=== PATIENT | male | born 1975 | race Caucasian/White ===

== ENCOUNTER 2021-09-29 17:11 | Emergency (ER) | payer SELFPAY ==
[2021-09-29 17:22] VITALS: BP 179/73; PULSE 83; RESP 20; TEMP 36.6; O2SAT 97
--- NOTE | 2021-09-29 17:31 | ED_ITS ---
HPI - Extremity Problem General: Chief complaint: Extremity Injury, Upper Stated complaint: HAND INJURY 4 TO 5 DAYS AGO Time Seen by Provider: 09/29/21 17:30 History of Present Illness: 46-year-old male patient comes in [facility] for complaints of injury to the left hand. Patient had fallen and struck his hand against the ground approximately 2 or 3 days ago. Patient was incarcerated and had just got out of [facility] and was recommended to follow-up for evaluation. Associated symptoms: Deny chest pain or rash Review of Systems General: Reports: 10 or more systems reviewed and unremarkable except in HPI and below ENMT: Denies: throat pain Card: Denies: chest pain Resp: Denies: dyspnea Musc: Reports: extremity pain Skin/Breast: Denies: rash or new lesions Physical Exam Const: COMMON NORMALS: alert HENMT: COMMON NORMALS: normocephalic HEAD & SCALP: normocephalic Neck/C-Spine: COMMON NORMALS: full ROM Resp: COMMON NORMALS: normal respiratory effort Cardio: COMMON NORMALS: regular rate RATE: regular rate Extremity: LEFT UPPER EXTREMITY: Yes hand & digits (Swelling and tenderness is noted to the left hand. No significant deformit) Left hand and digits: Yes inspection, Yes palpation and Yes ROM Neuro: SENSORIUM/ORIENTATION: Yes alert Course Vital Signs: Vital signs: Vital Signs Temperature 97.8 F 09/29/21 17:22 Pulse Rate 83 09/29/21 17:22 Respiratory Rate 20 H 09/29/21 17:22 Blood Pressure 179/73 09/29/21 17:22 Pulse Oximetry 97 09/29/21 17:22 MDM - Extremity (Nontraumatic) Medical Decision Making 46-year-old male patient comes in for injury to the left hand. On exam patient has some swelling and tenderness to the dorsal hand. Distal cap refill is intact. Patient moves fingers with minimal difficulty. Differential diagnosis includes not limited to boxer's fracture, wrist fracture, contusion. X-ray notes a shaft fifth metacarpal fracture and possibly a ulnar styloid fracture. Patient was put in a ulnar gutter splint. Patient was recommended to follow-up with orthopedics. Barrier to care is patient's homelessness. Although the fracture does not seem very displaced today suspect he will probably heal without any difficulty but strongly encouraged him to follow-up. Patient stated understanding and agreed to plan. Patient is a barrier to care as alcohol abuse. Patient was written for 10 tablets of tramadol for pain. Discharge Plan Discharge Patient Disposition: Home Clinical Impression: Alcohol abuse Closed boxer's fracture Qualifiers: Encounter type: initial encounter Qualified Code(s): S62.339A - Displaced fracture of neck of unspecified metacarpal bone, initial encounter for closed fracture Closed fracture of metacarpal of left hand Qualifiers: Encounter type: initial encounter Metacarpal bone: fifth Metacarpal location: shaft Fracture alignment: nondisplaced Qualified Code(s): S62.357A - Nondisplaced fracture of shaft of fifth metacarpal bone, left hand, initial encounter for closed fracture Condition: Stable Prescriptions: New tramadol 50 mg tablet 50 mg PO Q6H PRN (Reason: pain) Qty: 10 0RF Discharge Orders: Discharge ED (Routine); Ordered 09/29/21 Ordered By: Sam Simmons Discharge Diet: Usual diet Discharge Activity: Increase activity as tolerated Patient Instructions: Boxer Fracture (ED) Activity Restrictions/Additional Instructions: Follow-up with primary care for further instruction. Case management will try to contact you regarding a orthopedic follow-up. You may contact your orthopedist of your choice. Use acetaminophen and ibuprofen to help control pain. Drink plenty of water with medications. Keep splint intact and dry. Coding Level of Care Code ED Valve Steamer for Flavio Larkin
--- NOTE | 2021-09-29 18:21 | XRR_ITS ---
PROCEDURE INFORMATION: Exam: XR Left Hand Exam date and time: 09/29/2021 6:37 PM Age: 46 years old Clinical indication: Pain; Hand; Left; Additional info: Injury TECHNIQUE: Imaging protocol: XR Left hand. Views: 3 or more views. COMPARISON: No relevant prior studies available. FINDINGS: Bones/joints: Transverse fracture through the distal 5th metacarpal. Displaced avulsion fracture of the ulnar styloid process. Soft tissues: Normal. XR/XR hand LT min 3V* [id number] IMPRESSION: 1. Transverse fracture through the distal 5th metacarpal. 2. Displaced avulsion fracture of the ulnar styloid process.
--- NOTE | 2021-09-29 18:21 | XRR_ITS ---
PROCEDURE INFORMATION: Exam: XR Left Forearm Exam date and time: 09/29/2021 6:37 PM Age: 46 years old Clinical indication: Pain; Lower or forearm; Left; Additional info: Injury TECHNIQUE: Imaging protocol: XR Left forearm. Views: 2 views. COMPARISON: No relevant prior studies available. FINDINGS: Bones/joints: Fracture through the distal 5th metacarpal and ulnar styloid avulsion fracture. The rest of the radius and ulna are intact. Soft tissues: Normal. XR/XR forearm LT 2V [id number] IMPRESSION: 1. Fracture through the distal 5th metacarpal. 2. Ulnar styloid avulsion fracture.
[2021-09-29] MEDS: TRAMadol 50 mg Tablet PO (18:33)
[2021-09-29] MEDS: LORazepam 0.5 mg Tablet PO ×2 (18:33→19:21)
[2021-09-29 19:25] VITALS: BP 160/89; PULSE 59; RESP 20; O2SAT 98
--- NOTE | 2021-09-30 09:37 | DCPLANNER ---
Addendum entered by Alecia Rogel 10/10/21 16:53: Patient had a follow up appointment scheduled for 10.06.21 with ortho - patient did not attend appointment. Addendum entered by Alecia Rogel 10/02/21 10:48: Patient has a follow up appointment scheduled for October at 2:00 with Zoltan Sidhu. Clinic will call patient with appointment information. Original Note: manager of patient had message to schedule a follow up appointment for patient with ortho. manager of patient sent patients information to the front office staff at ortho. Patients information will be printed and reviewed. Clinic will call patient with appointment information.
== END 2021-09-29 19:25 | disposition home or self-care (01) ==
PROVIDERS: Emergency Provider Nurse Practitioner Family
DX: S62.339A Displaced fracture of neck of unspecified metacarpal bone, initial encounter for closed fracture (principal); S62.357A Nondisplaced fracture of shaft of fifth metacarpal bone, left hand, initial encounter for closed fracture; W19.XXXA Unspecified fall, initial encounter
CPT/HCPCS: 29125; 73090; 73130; 99283

== ENCOUNTER 2021-10-01 21:18 | Observation (INO) | payer SELFPAY ==
[2021-10-01 21:39] VITALS: BMI 23.7
--- NOTE | 2021-10-01 21:47 | ED_ITS ---
Documented by User: ERROL Johnson 10/02/21 02:26 HPI - Nausea/Vomiting/Diarrhea General: Chief complaint: Nausea/Vomiting/Diarrhea Stated complaint: N/V Time Seen by Provider: 10/01/21 21:39 History of Present Illness: Patient is a 46-year-old male comes to the ED with nausea and vomiting. Symptoms started today when he woke up. He said his stomach is felt really nauseous and when he tries to eat or drink anything he throws it back up. Denies any known sick contacts. He has had multiple episodes of emesis today. Patient admits to being a heavy daily alcohol drinker and states that he has not been able to even keep alcohol down today and has been throwing that up as well. Patient usually consumes close to 1 to 2 pints of liquor a day. He denies any fevers, chills, upper respiratory symptoms, abdominal pain, bladder or bowel symptoms. Denies any recent falls or syncopal episodes. Associated nausea: Yes Associated symtoms: Reports nausea; Denies change in vision, chest pain, dysuria, fatigue, headache(s) or palpitations Review of Systems Const: Denies: fever(s), chills or fatigue Eyes: Denies: change in vision or eye discomfort ENMT: Denies: throat pain, odynophagia, nasal discharge or nasal congestion Card: Denies: chest pain, palpitations, edema, swelling of feet/ankles, dyspnea on exertion or orthopnea Resp: Denies: dyspnea, productive cough or non-productive cough GI: Reports: nausea and vomiting; Denies: abdominal pain, diarrhea, constipation or hematochezia : Denies: flank pain, difficulty urinating, dysuria or hematuria Musc: Denies: neck pain, back pain or extremity swelling Skin/Breast: Denies: rash or new lesions Neuro: Denies: headache(s), numbness in extremities or weakness in extremities PFS ED PFSH: Medical History Alcohol abuse No pertinent family history Physical Exam Const: COMMON NORMALS: patient oriented x3 and alert GENERAL APPEARANCE: cooperative and odor of alcohol detected HENMT: COMMON NORMALS: normocephalic HEAD & SCALP: normocephalic MOUTH: Normal oral and palatal mucosa present THROAT: posterior oropharynx normal and uvula midline Eye: COMMON NORMALS: Equal, round and reactive pupils present PUPIL: Yes Equal, round and reactive pupils present Neck/C-Spine: COMMON NORMALS: supple GENERAL: Yes normal visual inspection Resp: COMMON NORMALS: normal respiratory effort, No retractions, No use of accessory muscles and clear to auscultation bilaterally AUSCULTATION: clear to auscultation bilaterally Cardio: COMMON NORMALS: regular rate, regular rhythm, S1 normal heart sound present, S2 normal heart sound present, No gallops present (Cardio), No clicks present (Cardio), No murmurs present (Cardio) and Peripheral pulses 2+ throughout RATE: regular rate RHYTHM: regular rhythm HEART SOUNDS: S1 normal heart sound present and S2 normal heart sound present PERIPHERAL PULSES: Peripheral pulses 2+ throughout GI: COMMON NORMALS: Normal to inspection, nondistended, normoactive bowel sounds present, Soft to palpation, non-tender and no masses PALPATION: Yes Soft to palpation : COMMON NORMALS: Yes no CVA tenderness BLADDER/KIDNEY EXAM: Yes no CVA tenderness Back/Pelvis: COMMON NORMALS: no CVA tenderness Extremity: COMMON NORMALS: normal to inspection Neuro: COMMON NORMALS: patient oriented x3 and moves all extremities SENSORIUM/ORIENTATION: Yes alert Skin: GENERAL SKIN EXAM: dry skin Course Vital Signs: Vital signs: Vital Signs Pulse Rate 80 10/02/21 05:00 Respiratory Rate 22 H 10/02/21 05:00 Blood Pressure 151/71 10/02/21 05:00 Pulse Oximetry 93 10/02/21 05:00 MDM - Nausea/Vomiting/Diarrhea Medical Decision Making Patient case was signed over to Dr. Sánchez at the end of my shift. I reviewed patient case with Dr. Sánchez and he will be taking over care for patient and discharge plan. Patient is a 46-year-old male that came to the ED with nausea and vomiting that started today. He denies any abdominal pain, fevers, chills, chest pain, shortness of breath, bladder or bowel symptoms. He admits to being a daily alcohol user and drinks close to a pint of liquor a day. Vitals are stable. Patient does have an odor of alcohol during exam. He has no abdominal tenderness upon palpation throughout all 4 quadrants. Rest of exam is benign. Alcohol level 214 and the rest of labs were unremarkable. Patient was given 1 L of IV fluids and some Reglan and thiamine while here in the ED and his symptoms improved. He was not having any nausea. Patient can be discharged home pending p.o. fluid challenge. Lab Data I reviewed the patient's lab results. : 10/01/21 22:43 10/01/21 22:43 Radiology Impressions Chest X-Ray 10/02/21 02:38 IMPRESSION: No acute findings. Laboratory Results WBC 5.2 10^3/uL (4.0-10.0) 10/01/21 22: RBC 4.33 10^6/uL (4.1-5.3) 10/01/21 22:43 Hgb 14.1 g/dL (11.7-16.6) 10/01/21 22: Hct 41.0 % (42.0-52.0) L 10/01/21 22: MCV 94.7 fl (80-94) H 10/01/21 22: MCH 32.6 pg (28.0-34.0) 10/01/21 22: MCHC 34.4 g/dL (30.0-36.0) 10/01/21 22: RDW 12.5 % (12.1-15.1) 10/01/21: Plt Count 133 10^3/cmm (130-400) 10/01/21 22: MPV 9.9 fL (7.4-10.4) 10/01/21 22:43 Neut % (Auto) 63.3 % 10/01/21 22: Lymph % (Auto) 25.0 % 10/01/21 22:43 [place] % (Auto) 9.3 % 10/01/21 22:43 Eos % (Auto) 1.0 % 10/01/21 22:43 Baso % (Auto) 1.2 % 10/01/21:43 Neut # (Auto) 3.26 10^3/uL (1.8-7.7) 10/01/21 22:43 Lymph # (Auto) 1.3 10^3/uL (0.8-4.8) 10/01/21 22:43 [place] # (Auto) 0.5 10^3/uL (0.2-0.9) 10/01/21 22:43 Eos # (Auto) 0.1 10^3/uL (0.0-0.8) 10/01/21 22:43 Baso # (Auto) 0.1 10^3/uL (0.0-0.1) 10/01/21 22:43 Nucleated RBC % (auto) 0 % 10/01/21 22:43 Nucleated RBCs # 0.0 /100WBC 10/01/21 22:43 Sodium 139 mmol/L (136-145) 10/01/21 22:43 Potassium 3.6 mmol/L (3.5-5.1) 10/01/21 22:43 Chloride 99 mmol/L (98-107) 10/01/21 22:43 Carbon Dioxide 24 mmol/L (22-29) 10/01/21 22:43 Anion Gap 19.6 (5-19) H 10/01/21 22:43 BUN 11 mg/dL (6-20) 10/01/21 22:43 Creatinine 0.5 mg/dL (0.7-1.2) L 10/01/21 22:43 GFR Calculation 178.2 mL/min (90-130) H 10/01/21 22:43 Glucose 97 mg/dL (65-115) 10/01/21 22:43 Calculated Osmolality 287 mOsm/kg (285-295) 10/01/21 22:43 Calcium 7.9 mg/dL (8.5-10.5) L 10/01/21 22:43 Total Bilirubin 0.5 mg/dL (0.15-1.2) 10/01/21 22:43 AST 74 U/L (0-40) H 10/01/21 22:43 ALT 52 U/L (0-41) H 10/01/21 22:43 Alkaline Phosphatase 134 IU/L (40-130) H 10/01/21 22:43 Total Protein 6.6 g/dL (6.6-8.7) 10/01/21 22:43 Albumin 4.0 g/dL (3.5-5.2) 10/01/21 22:43 Globulin 2.6 g/dL (1.3-4.6) 10/01/21 22:43 Lipase 25 U/L (13-60) 10/01/21 22:43 Urine Color Dark yellow (Yellow) 10/01/21 22:00 Urine Appearance Turbid (CLEAR) 10/01/21 22:00 Urine pH 5 (5-7) 10/01/21 22:00 Ur Specific [place] 1.025 (1.005-1.030) 10/01/21 22:00 Urine Protein Trace (Negative) 10/01/21 22:00 Urine Glucose (UA) Norm (Normal) 10/01/21 22:00 Urine Ketones 2+ (Negative) H 10/01/21 22:00 Urine Blood 2+ (Negative) H 10/01/21 22:00 Urine Nitrate Negative (Negative) 10/01/21 22:00 Urine Bilirubin 1+ (Negative) H 10/01/21 22:00 Urine Urobilinogen 4 mg/dL (Negative) H 10/01/21 22:00 Ur Leukocyte Esterase Trace (Negative) H 10/01/21 22:00 Urine RBC 10-15 /hpf (0-2) H 10/01/21 22:00 Urine WBC 15-25 /hpf (0-5) H 10/01/21 22:00 Ur Squamous Epith Cells 5-10 /hpf (0-5) H 10/01/21 22:00 Amorphous Sediment Not Reportable 10/01/21 22:00 Urine Bacteria 1+ /hpf (NONE) H 10/01/21 22:00 Hyaline Casts 0-4 /lpf H 10/01/21 22:00 Urine Mucus 4+ /hpf 10/01/21 22:00 Ethyl Alcohol 214 mg/dL (0-10) H 10/01/21 22:43 Discharge Plan Discharge Patient Disposition: Home Clinical Impression: Vomiting, Gastritis, Alcohol intoxication Condition: Stable Prescriptions: New ondansetron 4 mg film 4 mg PO DAILY PRN (Reason: nausea and vomiting) Qty: 10 0RF lansoprazole [Prevacid] 30 mg capsule,delayed release(DR/EC) 30 mg PO DAILY Qty: 30 0RF No Action tramadol 50 mg tablet 50 mg PO Q6H PRN (Reason: pain) Qty: 10 0RF Discharge Orders: Discharge ED (Routine); Ordered 10/02/21 Ordered By: Noble Sánchez Patient Instructions: Gastritis (ED), Alcohol Intoxication (ED), Vomiting - Adult Activity Restrictions/Additional Instructions: Return for shortness of breath, worsening vomiting despite treatment, abdominal or chest pain, any other concerning symptoms. Take the nausea medication every 4 hours while awake for the first 48 hours, then as needed. Coding Level of Care Code ED Obiee Architect for Chg Fwd Exam Comprehensive Documented by User: Noble Sánchez, DO 10/02/21 05:54 HPI - Nausea/Vomiting/Diarrhea General: Chief complaint: Nausea/Vomiting/Diarrhea Stated complaint: N/V Time Seen by Provider: 10/01/21 21:39 History of Present Illness: Patient is a 46-year-old male comes to the ED with nausea and vomiting. Symptoms started today when he woke up. He said his stomach is felt really nauseous and when he tries to eat or drink anything he throws it back up. Denies any known sick contacts. He has had multiple episodes of emesis today. Patient admits to being a heavy daily alcohol drinker and states that he has not been able to even keep alcohol down today and has been throwing that up as well. Patient usually consumes close to 1 to 2 pints of liquor a day. He denies any fevers, chills, upper respiratory symptoms, abdominal pain, bladder or bowel symptoms. Denies any recent falls or syncopal episodes. [facility] ED PFS: Medical History Alcohol abuse No pertinent family history Course Vital Signs: Vital signs: Vital Signs Pulse Rate 80 10/02/21 05:00 Respiratory Rate 22 H 10/02/21 05:00 Blood Pressure 151/71 10/02/21 05:00 Pulse Oximetry 93 10/02/21 05:00 MDM - Nausea/Vomiting/Diarrhea Medical Decision Making Patient case was signed over to Dr. Sánchez at the end of my shift. I reviewed patient case with Dr. Sánchez and he will be taking over care for patient and discharge plan. Patient is a 46-year-old male that came to the ED with nausea and vomiting that started today. He denies any abdominal pain, fevers, chills, chest pain, shortness of breath, bladder or bowel symptoms. He admits to being a daily alcohol user and drinks close to a pint of liquor a day. Vitals are stable. Patient does have an odor of alcohol during exam. He has no abdominal tenderness upon palpation throughout all 4 quadrants. Rest of exam is benign. Alcohol level 214 and the rest of labs were unremarkable. Patient was given 1 L of IV fluids and some Reglan and thiamine while here in the ED and his symptoms improved. He was not having any nausea. Patient can be discharged home pending p.o. fluid challenge. This patient was originally seen by Mr. Magdiel PA-C.? I agree with his history, evaluation, and treatment. He was checked out to me at shift change. I examined the patient. He has had a small problem with very mild hypoxia, mainly related to positioning, and sleepiness. He is off oxygen now, oxygen saturations have been 87 to 92% on room air depending on how somnolent he has been. he will be allowed discharge Lab Data : 10/01/21 22:43 10/01/21 22:43 Radiology Impressions Chest X-Ray 10/02/21 02:38 IMPRESSION: No acute findings. Laboratory Results WBC 5.2 10^3/uL (4.0-10.0) 10/01/21: RBC 4.33 10^6/uL (4.1-5.3) 10/01/21 22:43 Hgb 14.1 g/dL (11.7-16.6) 10/01/21 22:43 Hct 41.0 % (42.0-52.0) L 10/01/21 22:43 MCV 94.7 fl (80-94) H 10/01/21 22:43 MCH 32.6 pg (28.0-34.0) 10/01/21: MCHC 34.4 g/dL (30.0-36.0) 10/01/21 22:43 RDW 12.5 % (12.1-15.1) 10/01/21 22:43 Plt Count 133 10^3/cmm (130-400) 10/01/21 22:43 MPV 9.9 fL (7.4-10.4) 10/01/21 22:43 Neut % (Auto) 63.3 % 10/01/21 22:43 Lymph % (Auto) 25.0 % 10/01/21 22:43 [place] % (Auto) 9.3 % 10/01/21 22:43 Eos % (Auto) 1.0 % 10/01/21 22:43 Baso % (Auto) 1.2 % 10/01/21 22:43 Neut # (Auto) 3.26 10^3/uL (1.8-7.7) 10/01/21 22:43 Lymph # (Auto) 1.3 10^3/uL (0.8-4.8) 10/01/21 22:43 [place] # (Auto) 0.5 10^3/uL (0.2-0.9) 10/01/21 22: Eos # (Auto) 0.1 10^3/uL (0.0-0.8) 10/01/21 22: Baso # (Auto) 0.1 10^3/uL (0.0-0.1) 10/01/21 22:43 Nucleated RBC % (auto) 0 % 10/01/21 22: Nucleated RBCs # 0.0 /100WBC 10/01/21 22:43 Sodium 139 mmol/L (136-145) 10/01/21 22:43 Potassium 3.6 mmol/L (3.5-5.1) 10/01/21 22: Chloride 99 mmol/L (98-107) 10/01/21 22:43 Carbon Dioxide 24 mmol/L (22-29) 10/01/21 22:43 Anion Gap 19.6 (5-19) H 10/01/21 22:43 BUN 11 mg/dL (6-20) 10/01/21 22:43 Creatinine 0.5 mg/dL (0.7-1.2) L 10/01/21 22:43 GFR Calculation 178.2 mL/min (90-130) H 10/01/21 22:43 Glucose 97 mg/dL (65-115) 10/01/21 22:43 Calculated Osmolality 287 mOsm/kg (285-295) 10/01/21 22:43 Calcium 7.9 mg/dL (8.5-10.5) L 10/01/21 22:43 Total Bilirubin 0.5 mg/dL (0.15-1.2) 10/01/21 22:43 AST 74 U/L (0-40) H 10/01/21: ALT 52 U/L (0-41) H 10/01/21 22:43 Alkaline Phosphatase 134 IU/L (40-130) H 10/01/21 22:43 Total Protein 6.6 g/dL (6.6-8.7) 10/01/21: Albumin 4.0 g/dL (3.5-5.2) 10/01/21: Globulin 2.6 g/dL (1.3-4.6) 10/01/21: Lipase 25 U/L (13-60) 10/01/21: Urine Color Dark yellow (Yellow) 10/01/21 22: Urine Appearance Turbid (CLEAR) 10/01/21 22: Urine pH 5 (5-7) 10/01/21: Ur Specific [place] 1.025 (1.005-1.030) 10/01/21 22: Urine Protein Trace (Negative) 10/01/21 22:00 Urine Glucose (UA) Norm (Normal) 10/01/21 22:00 Urine Ketones 2+ (Negative) H 10/01/21 22:00 Urine Blood 2+ (Negative) H 10/01/21 22:00 Urine Nitrate Negative (Negative) 10/01/21 22:00 Urine Bilirubin 1+ (Negative) H 10/01/21 22: Urine Urobilinogen 4 mg/dL (Negative) H 10/01/21 22:00 Ur Leukocyte Esterase Trace (Negative) H 10/01/21 22:00 Urine RBC 10-15 /hpf (0-2) H 10/01/21 22:00 Urine WBC 15-25 /hpf (0-5) H 10/01/21 22:00 Ur Squamous Epith Cells 5-10 /hpf (0-5) H 10/01/21 22:00 Amorphous Sediment Not Reportable 10/01/21 22:00 Urine Bacteria 1+ /hpf (NONE) H 10/01/21 22:00 Hyaline Casts 0-4 /lpf H 10/01/21 22:00 Urine Mucus 4+ /hpf 10/01/21 22:00 Ethyl Alcohol 214 mg/dL (0-10) H 10/01/21 22:43 Discharge Plan Discharge Patient Disposition: Home Clinical Impression: Vomiting, Gastritis, Alcohol intoxication Condition: Stable Prescriptions: New ondansetron 4 mg film 4 mg PO DAILY PRN (Reason: nausea and vomiting) Qty: 10 0RF lansoprazole [Prevacid] 30 mg capsule,delayed release(DR/EC) 30 mg PO DAILY Qty: 30 0RF No Action tramadol 50 mg tablet 50 mg PO Q6H PRN (Reason: pain) Qty: 10 0RF Discharge Orders: Discharge ED (Routine); Ordered 10/02/21 Ordered By: Noble Sánchez Patient Instructions: Gastritis (ED), Alcohol Intoxication (ED), Vomiting - Adult Activity Restrictions/Additional Instructions: Return for shortness of breath, worsening vomiting despite treatment, abdominal or chest pain, any other concerning symptoms. Take the nausea medication every 4 hours while awake for the first 48 hours, then as needed. Coding Level of Care Code ED Obiee Architect for Flavio Fwd Exam Comprehensive
[2021-10-01 21:52] VITALS: BP 164/87; PULSE 79; RESP 18; O2SAT 91
[2021-10-01 22:04] VITALS: BP 148/101; PULSE 98; RESP 18; O2SAT 92
[2021-10-01 22:19] LABS: Bilirubin Urine 1+ (Negative); Blood Urine 2+ (Negative); Glucose Urine UA Norm (Normal); Ketones Urine 2+ (Negative); Nitrate Urine Negative (Negative); Protein Urine Trace (Negative); Specific Gravity, Urine 1.025 (1.005-1.030); Urine Appearance Turbid (CLEAR); Urine Color Dark Yellow (Yellow); Urobilinogen Urine 4 mg/dL (Negative); pH Urine 5 (5-7)
[2021-10-01 22:20] LABS: Add Urine Microscopic? YES; Leukocyte Esterase Urine Trace (Negative)
[2021-10-01 22:21] LABS: Bacteria Urine 1+ /hpf; Mucus Urine 4+ /hpf; WBC Urine 15-25 /hpf (0-5)
[2021-10-01 22:22] LABS: Add Urine Culture? Yes; Hyaline Casts Urine 0-4 /lpf
[2021-10-01 22:34] VITALS: BP 139/82; PULSE 86; RESP 18; O2SAT 93
[2021-10-01] MEDS: sodium chloride 0.9% 1,000 ML 999 ML IV (22:35)
[2021-10-01] MEDS: metoclopramide 5 mg/mL SDV 2 mL 10 MG IVP (22:40)
[2021-10-01 23:04] VITALS: BP 127/65; PULSE 82; RESP 18; O2SAT 94
[2021-10-01 23:16] LABS: Basophils # 0.1 10^3/uL (0.0-0.1); Basophils % 1.2 %; Eosinophils # 0.1 10^3/uL (0.0-0.8); Hemoglobin 14.1 g/dL (11.7-16.6); Lymphocytes # 1.3 10^3/uL (0.8-4.8); Mean Corpuscular HGB Conc 34.4 g/dL (30.0-36.0); Mean Corpuscular Hemoglobin 32.6 pg (28.0-34.0); Mean Corpuscular Volume 94.7 fl (80-94); Mean Platelet Volume 9.9 fL (7.4-10.4); Monocytes # 0.5 10^3/uL (0.2-0.9); Monocytes % 9.3 %; Neutrophils # 3.26 10^3/uL (1.8-7.7); Neutrophils % 63.3 %; Nucleated Red Blood Cells % 0 %; Platelet Count 133 10^3/cmm (130-400); Red Blood Count 4.33 10^6/uL (4.1-5.3); Red Cell Distribution Width 12.5 % (12.1-15.1); White Blood Count 5.2 10^3/uL (4.0-10.0)
[2021-10-01 23:34] VITALS: BP 125/64; PULSE 82; RESP 18; O2SAT 94
[2021-10-01 23:40] LABS: Alanine Aminotransferase 52 U/L (0-41); Alcohol Level 214 mg/dL (0-10); Alkaline Phosphatase 134 IU/L (40-130); Aspartate Amino Transferase 74 U/L (0-40); Blood Urea Nitrogen 11 mg/dL (6-20); Calcium 7.9 mg/dL (8.5-10.5); Carbon Dioxide 24 mmol/L (22-29); Chloride 99 mmol/L (98-107); Globulin 2.6 g/dL (1.3-4.6); Glomerular Filtration Rate 178.2 mL/min (90-130); Glucose 97 mg/dL (65-115); Lipase 25 U/L (13-60); Osmolality Calculated 287 mOsm/kg (285-295); Sodium 139 mmol/L (136-145); Total Bilirubin 0.5 mg/dL (0.15-1.2); Total Protein 6.6 g/dL (6.6-8.7)
[2021-10-01 23:41] LABS: Anion Gap 19.6 (5-19); Potassium 3.6 mmol/L (3.5-5.1)
[2021-10-02] VITALS (25 sets, daily range): BP systolic 106–158; BP diastolic 53–82; PULSE 64–88; RESP 16–22; TEMP 36.7–37.2; O2SAT 88–98; BMI 24.5; BMI 23.8
--- NOTE | 2021-10-02 02:38 | XRR_ITS ---
PROCEDURE INFORMATION: Exam: XR Chest Exam date and time: 10/02/2021 2:51 AM Age: 46 years old Clinical indication: Dyspnea; Additional info: Shortness of breath TECHNIQUE: Imaging protocol: XR of the chest. Views: 1 view. COMPARISON: No relevant prior studies available. FINDINGS: Lungs: Unremarkable. No consolidation. Pleural spaces: Unremarkable. No pleural effusion. No pneumothorax. Heart/Mediastinum: Unremarkable. No cardiomegaly. Bones/joints: Unremarkable. XR/XR chest 1V portable [id number] IMPRESSION: No acute findings.
--- NOTE | 2021-10-02 03:00 | PC.NURSE ---
0240 Pt had been taken to RA by Dr Sánchez. His Sp02 dropped to 84% on RA. Encouragd deep slow breathes with no improvement with Sp02. Placed pt back on 2 L O2 via NC. Sp02 increased to mid 90'S. Dr Sánchez updated.
[2021-10-02] MEDS: ipratropium-albuterol 3 mL Neb INHALATION ×4 (04:28→19:41)
[2021-10-02] MEDS: LORazepam 2 mg/mL INJ 1 mL 1 MG IVP (04:46)
--- NOTE | 2021-10-02 05:09 | PC.NURSE ---
0455 Pt repeatedly desats into the low-mid 80's on RA. Have multiple times changed pt position and gave neb tx. Dr Sánchez has been monitoring and instructed to place back on O2. Pt now on NC 2-3L O2.
[2021-10-02] MEDS: naloxone 0.4 mg/ml SDV 0.2 MG IVP (05:40)
[2021-10-02 06:37] LABS: ABG PCO2 43.1 mmHg (35-45); Base Excess ABG 1.7 mmol/L (-2.0-2.0); Blood Gas Allen Test Pos; Blood Gas Sample Site Radial, left; Blood Gas Sample Type Arterial; HCO3 ABG 26.9 mmol/L (22-26); Oxygen Device NC; PO2 ABG 65.5 mmHg (80.0-100.0)
--- NOTE | 2021-10-02 06:50 | P.HP_ITS ---
Providers/Chief Complaint Chief Complaint: N/V History of Present Illness The patient is a 46-year-old male who presented to [place] abdominal pain which started possibly 24 hours prior to hospitalization. He states it is in the umbilical region without radiation. He describes as a dull pain and?s been constant since the time of onset. As worst rated 510 and currently rates 5 out of 10. He states that he took tramadol which improve the pain somewhat. He denies frequent NSAID use. He states that his last bowel movement was possibly 24 hours prior to hospitalization and was of normal consistently but thus he denies diarrhea. He denies melena or hematochezia. He denies fever. He notes to rigors, nausea, and vomiting. Patient has an extensive history of alcohol abuse and currently drinks 2 pints of whiskey daily and uses numerous drugs. He presents for further evaluation Review of Systems General: Reports: 10 or more systems reviewed and unremarkable except in HPI and below Medications/Allergies Home Medications Medication Instructions Recorded Confirmed Last Taken Type tramadol 50 mg tablet 50 mg PO Q6H PRN #10 tab 09/29/21 Unknown Rx lansoprazole 30 mg capsule,delayed 30 mg PO DAILY #30 cap 10/02/21 Unknown Rx release (Prevacid) ondansetron 4 mg oral soluble film 4 mg PO DAILY PRN #10 each 10/02/21 Unknown Rx Allergies Allergy/AdvReac Type Severity Reaction Status Date / Time erythromycin base Allergy ALGY-Rash Verified 09/29/21 17:26 Penicillins Allergy ALGY-Anaphy Verified 09/29/21 17:26 laxis PFSH Acute PFSH: Medical History Alcohol abuse No pertinent family history Vitals/I&O/Wt Last Vital Signs Pulse 76 10/02/21 06:30 Resp 18 10/02/21 06:30 BP 137/69 10/02/21 06:30 Pulse Ox 91 10/02/21 06:30 Weight last 48 hrs Weight 77.111 kg Physical Exam Narrative: General: -Alert -No acute distress -No dyspnea -No tachypnea Head: -Atraumatic -Normocephalic Eyes: -Pupils equally round and reactive to light and accommodation -Extraocular muscles intact Neurological: -Cranial nerves II-XII intact Neck: -No jugular venous distention -No thyromegaly -No cervical lymphadenopathy Heart: -Regular rate -Regular rhythm -No murmurs -No gallops -No rubs Lungs: -No wheeze -No rhonchi -No rales ? Abdomen: -Normal bowel sounds in all four quadrants -No rebound -No guarding -No tenderness Extremities: -2/4 pulse in all four extremities -No clubbing -No cyanosis -No edema -No calf tenderness present bilaterally -Negative Shirin?s sign bilaterally Musculoskeletal: -5/5 bilateral upper extremity strength -5/5 bilateral lower extremity strength -Sensorium of bilateral upper extremities are equal and intact -Sensorium of bilateral lower extremities are equal and intact ? Additional Details / Additional Findings / Exceptions / Miscellaneous: Data : 10/01/21 22:43 10/01/21 22:43 A&P Assessment and plan (1) Vomiting: Status: Acute Plan Abdominal pain. I suspect patient has alcohol-induced gastritis. KUB pending. Lactate level pending. Nothing by mouth. Protonix 40 Mill grams IV twice a day Po 681 g by mouth every 6 hours Alcohol abuse with anticipate alcohol withdrawal. Seizure precautions. IV when necessary Ativan on sliding scale plus IV normal saline at 75 ML's per hour Transaminitis. Likely insurance service representative of alcoholic hepatitis. Will monitor LFTs periodically with CMP along with PT/INR. If we see no improvement/normalization, we may consider hepatitis panel and right upper quadrant ultrasound Urinary tract infection. PSA level pending. Rocephin 1 g IV daily Macrocytosis. Currently pending: TSH, free T4, B12, folate level GERD. Protonix 40 Mill grams IV twice a day +681 g by mouth every 6 hours Elevated blood pressure. Patient has no documented history of hypertension Smoker. The patient will be counseled regarding smoking cessation Hypoxia. Likely insurance service representative of COPD exacerbation. Chest x-ray unremarkable. ABG pending. Solu-Medrol 6 mg IV every 8 hours plus DuoNeb every 4 hours Polysubstance abuse. Urine drug screen pending. The patient will need to be counseled regarding drug cessation DVT Proflex is. Bilateral SCD Attestations Medical Necessity Statement*: Patient's anticipate length of stay is less than 2 midnights for evaluation of his hypoxia as well as his abdominal pain Coding Level of Care Code Acute Health Information Coder for g Fwd Diagnoses Vomiting R11.10
[2021-10-02 08:27] LABS: Amphetamines Screen Urine Negative (Negative); Barbiturates Screen Urine Negative (Negative); Benzodiazepines Screen Urine Negative (Negative); Cocaine Screen Urine Negative (Negative); Opiate Screen Urine Negative (Negative); PCP Screen Urine Negative (Negative); THC Screen Urine Negative (Negative)
[2021-10-02 08:38] LABS: Adenovirus Not Detected (NOT DETECT); Chlamydia Pneumoniae Not Detected (NOT DETECT); Coronavirus 229E,HKU1,NL63,OC4 Not Detected (NOT DETECT); Human Metapneumovirus Not Detected (NOT DETECT); Human Rhinovirus/Enterovirus Not Detected (NOT DETECT); Influenza A Not Detected (NOT DETECT); Influenza A H1 Not Detected (NOT DETECT); Influenza A H1-2009 Not Detected (NOT DETECT); Influenza A H3 Not Detected (NOT DETECT); Influenza B Not Detected (NOT DETECT); Mycoplasma Pneumoniae Not Detected (NOT DETECT); Parainfluenza Virus Type 1 Not Detected (NOT DETECT); Parainfluenza Virus Type 2 Not Detected (NOT DETECT); Parainfluenza Virus Type 3 Not Detected (NOT DETECT); Parainfluenza Virus Type 4 Not Detected (NOT DETECT); Respiratory Syncytial Virus A Not Detected (NOT DETECT); Respiratory Syncytial Virus B Not Detected (NOT DETECT); SARS-COV-2 Not Detected (NOT DETECT)
--- NOTE | 2021-10-02 09:25 | XRR_ITS ---
PROCEDURE INFORMATION: Exam: XR Abdomen Exam date and time: 10/02/2021 9:28 AM Age: 46 years old Clinical indication: Abdominal pain TECHNIQUE: Imaging protocol: XR of the abdomen. Views: Frontal supine view of the abdomen. 1 View. COMPARISON: CR (CHEST, ) 10/02/2021 2:51 AM FINDINGS: Gastrointestinal tract: There are a couple mildly dilated loops of small bowel in the left upper quadrant. This does not have the typical appearance of obstruction on CT. Obstruction is considered unlikely. Intraperitoneal space: No free intraperitoneal air. Vasculature: No portal venous gas is appreciated. Bones/joints: No gross acute fracture XR/XR KUB portable [id number] IMPRESSION: 1. There are a couple mildly dilated loops of small bowel in the left upper quadrant. This does not have the typical appearance of obstruction on CT. Obstruction is considered unlikely. 2. Please see dedicated CT for additional findings.
--- NOTE | 2021-10-02 09:30 | CTR_ITS ---
PROCEDURE INFORMATION: Exam: CT Abdomen And Pelvis Without Contrast Exam date and time: 10/02/2021 9:50 AM Age: 46 years old Clinical indication: Abdominal pain. UTI. TECHNIQUE: Imaging protocol: Computed tomography of the abdomen and pelvis without contrast. Radiation optimization: All CT scans at this facility use at least one of these dose optimization techniques: automated exposure control; mA and/or kV adjustment per patient size (includes targeted exams where dose is matched to clinical indication); or iterative reconstruction. COMPARISON: CR (ABDOMEN, ) 10/02/2021 9:28 AM RADIATION DOSE METRICS: Total DLP (mGy-cm): 714.69 FINDINGS: Lungs: Subsegmental atelectasis in the right middle lobe. No pericardial effusion. Small hiatal hernia. Liver: The liver is enlarged measuring 17.9 cm. There is diffuse hepatic steatosis. Gallbladder and bile ducts: The gallbladder is unremarkable. The common bile duct is dilated measuring up to 1.1 cm. No definite obstructive stone or lesion is seen. Pancreas: The pancreas is unremarkable. Spleen: The spleen is unremarkable. Adrenal glands: The adrenal glands are unremarkable. Kidneys and ureters: The kidneys are unremarkable. Stomach and bowel: The stomach and small bowel are unremarkable. There is diffuse wall thickening of the colon suspicious for colitis. Correlate clinically. Colonic diverticulosis without evidence of acute diverticulitis Appendix: The appendix is unremarkable. Intraperitoneal space: No free intraperitoneal air is seen. Vasculature: No abdominal aortic aneurysm. Lymph nodes: A periportal lymph node measures 1.2 x 2.2 cm. Urinary bladder: The bladder is distended with urine. Reproductive: The prostate measures 3.0 x 4.4 cm. Bones/joints: No acute fracture is identified. Soft tissues: No subcutaneous soft tissue swelling is appreciated. CT/CT kidney stone [id number] IMPRESSION: 1. Diffuse wall thickening of the colon suspicious for colitis. Correlate clinically. 2. The common bile duct is dilated measuring up to 1.1 cm. No definite obstructive stone or lesion is seen. Recommend right upper quadrant ultrasound to further assess. 3. Hepatomegaly with diffuse hepatic steatosis and mild periportal lymphadenopathy. 4. Colonic diverticulosis without evidence of acute diverticulitis. 5. Small hiatal hernia.
--- NOTE | 2021-10-02 09:42 | PM.PN ---
Subjective Subjective: He still having abdminal pain. He is also having pain in his left hand. He states he was previously seen by Dr. Marrero he had fractured his left hand when hitting a wall [facility] [place] [facility]. He states that he was fitted with a splint, but that he decided he did not want to wear it as he cannot do anything. Asking him if he has changed his mind and is willing to wear it now, he states no. He is coughing, but denies any sputum production. Vitals/I&O/Wt Last Vital Signs Pulse 88 10/02/21 09:09 Resp 18 10/02/21 09:09 BP 120/53 10/02/21 09:09 Pulse Ox 96 10/02/21 09:09 Weight last 48 hrs Weight 77.111 kg Physical Exam Const: COMMON NORMALS: alert GENERAL APPEARANCE: cooperative ORIENTATION/CONSCIOUSNESS: Yes awake HENMT: COMMON NORMALS: normocephalic, EAC's normal, Normal external nose present and moist oral mucous membranes HEAD & SCALP: normocephalic NOSE: Normal external nose present EXTERNAL AUDITORY CANAL: EAC's normal Neck/C-Spine: COMMON NORMALS: no meningeal signs Chest: CHEST: Yes Symmetrical chest wall rise Resp: AUSCULTATION: diminished lung sounds Cardio: COMMON NORMALS: regular rate, regular rhythm and No murmurs present (Cardio) RATE: regular rate RHYTHM: regular rhythm GI: COMMON NORMALS: Normal to inspection, nondistended, normoactive bowel sounds present and Soft to palpation PALPATION: Yes Soft to palpation and Yes Tenderness to palpation present (GI) (R side) Extremity: COMMON NORMALS: no pedal edema OTHER: Mild swelling L hand/volar surface, no redness/pallor Neuro: COMMON NORMALS: moves all extremities SENSORIUM/ORIENTATION: Yes alert MENINGEAL SIGNS: Yes no meningeal signs Psych: COMMON NORMALS: mental status grossly normal Skin: COMMON NORMALS: no wounds RASHES: no rashes Data : 10/01/21 22:43 10/01/21 22:43 A&P Assessment and plan (1) Vomiting: Complaint of further vomiting. Persistent abdominal pain. Additional imaging with CT abdomen pelvis as below. Suspected gastritis, possibly alcohol induced. Continue PPI. Zofran as needed for nausea. Add sucralfate. Lipase not elevated. Status: Acute (2) UTI (urinary tract infection): History of anaphylaxis reported to penicillin. Changed to Levaquin. Follow-up urine culture. Persistent abdominal pain, right side, right flank. Will additionally imaged with CT renal protocol. Status: Acute (3) COPD exacerbation: Diminished air entry, hypoxia. Continue steroid, empiric antibiotic with Levaquin, breathing treatments. Status: Acute (4) Alcohol abuse: Monitor for withdrawal. [facility] protocol. Thiamine, folic acid, multivitamin. Encourage cessation. Status: Acute (5) Transaminitis: Mild transaminitis. Possibly EtOH induced. Repeat liver parameters. Check PT, although is already on steroids. Bilirubin not elevated. Status: Acute (6) Hypoxia: Continue treatment for COPD exacerbation as above. No chest pain or pressure. No tachycardia. No hemoptysis. No unilateral edema. In case symptoms changes consider additional assessment for PE. PERC rule cannot be used as he does have need for oxygen, but Wells score for PE is low. Status: Acute (7) Closed fracture of metacarpal of left hand: States was previously set up with a splint, but declined to wear it as she cannot do things with it. Still declines to wear it. Follow-up with PCP, Ortho. Lidocaine patch. Status: Acute Qualifiers: Encounter type: initial encounter Fracture alignment: nondisplaced Metacarpal bone: fifth Metacarpal location: shaft Qualified Code(s): S62.357A - Nondisplaced fracture of shaft of fifth metacarpal bone, left hand, initial encounter for closed fracture Plan Abdominal pain. As above Macrocytosis. Currently pending: TSH, free T4, B12, folate level GERD. Protonix 40 Mill grams IV twice a day +681 g by mouth every 6 hours Elevated blood pressure. Patient has no documented history of hypertension Smoker. The patient will be counseled regarding smoking cessation Polysubstance abuse. Urine drug screen unremarkable. EtOH elevated. The patient will need to be counseled regarding cessation of EtOH (and drug?) use. DVT Proflex is. Bilateral SCD Attestations Medical Necessity Statement*: Continue hospitalization for cyst management of gastritis, UTI, COPD exacerbation with hypoxia, with elevated risk of alcohol withdrawal. Coding Level of Care Code Acute Member Certification Manager for [facility] Fwd Diagnoses Vomiting R11.10 UTI (urinary tract infection) N39.0 COPD exacerbation J44.1 Alcohol abuse F10.10 Transaminitis R74.01 Hypoxia R09.02 Closed fracture of metacarpal of left hand S62.357A Encounter type: initial encounter Fracture alignment: nondisplaced Metacarpal bone: fifth Metacarpal location: shaft
--- NOTE | 2021-10-02 10:02 | PC.NURSE ---
weight: 171.2lbs gustabo: 5' 11
[2021-10-02] MEDS: sucralfate 1 gm Tablet PO (11:01)
[2021-10-02] MEDS: LORazepam 2 mg Tablet PO ×2 (11:02→20:22)
[2021-10-02] MEDS: pantoprazole 40 mg SDV IVP ×2 (11:03→22:09)
[2021-10-02] MEDS: levofloxacin-dextrose 5 % 750 MG/150 ML PREMIX 100 MG IV (11:04)
[2021-10-02] MEDS: metroNIDAZOLE IV 500 MG/100 ML PREMIX 100 MG IV ×2 (12:33→20:21)
[2021-10-02] MEDS: LORazepam 2 mg/mL INJ 1 mL IVP (16:54)
[2021-10-02 18:01] LABS: INR 0.98 (0.8-1.2)
[2021-10-02 18:10] LABS: Lactate (Lactic Acid level) 1.5 mmol/L (0.5-2.2)
[2021-10-02 18:22] LABS: Free T4 Free Thyroxine 0.96 ng/dL (0.82-1.77); Prostate Specific Antigen Scr 0.78 ng/mL (0-4); Thyroid Stimulating Hormone 0.45 uIU/mL (0.27-4.20)
[2021-10-02 18:55] LABS: Vitamin B12 392 pg/mL (232-1245)
[2021-10-02 18:56] LABS: Folate Level 10.5 ng/mL (4.5-32.2)
[2021-10-02] MEDS: lidocaine 5% Patch 1 PATCH TOPICAL (20:29)
[2021-10-03] VITALS: BP 132/77; PULSE 76; RESP 17; TEMP 36.8; O2SAT 97
[2021-10-03] MEDS: LORazepam 2 mg/mL INJ 1 mL IVP ×2 (01:12→07:16)
[2021-10-03 03:28] LABS: Hematocrit 39.7 % (42.0-52.0); Hemoglobin 14.3 g/dL (11.7-16.6); Lymphocytes # 0.3 10^3/uL (0.8-4.8); Lymphocytes % 6.4 %; Mean Corpuscular Hemoglobin 32.6 pg (28.0-34.0); Mean Corpuscular Volume 90.6 fl (80-94); Monocytes # 0.3 10^3/uL (0.2-0.9); Monocytes % 5.7 %; Neutrophils # 4.27 10^3/uL (1.8-7.7); Neutrophils % 87.7 %; Nucleated Red Blood Cells % 0 %; Platelet Count 131 10^3/cmm (130-400); Red Blood Count 4.38 10^6/uL (4.1-5.3); Red Cell Distribution Width 11.9 % (12.1-15.1); White Blood Count 4.9 10^3/uL (4.0-10.0)
[2021-10-03 03:42] LABS: Alanine Aminotransferase 44 U/L (0-41); Alkaline Phosphatase 131 IU/L (40-130); Anion Gap 13.2 (5-19); Aspartate Amino Transferase 47 U/L (0-40); Blood Urea Nitrogen 14 mg/dL (6-20); Calcium 9.5 mg/dL (8.5-10.5); Carbon Dioxide 26 mmol/L (22-29); Chloride 97 mmol/L (98-107); Glomerular Filtration Rate 144.4 mL/min (90-130); Glucose 174 mg/dL (65-115); Osmolality Calculated 279 mOsm/kg (285-295); Potassium 4.2 mmol/L (3.5-5.1); Sodium 132 mmol/L (136-145); Total Bilirubin 1.1 mg/dL (0.15-1.2)
[2021-10-03 03:44] LABS: INR 1.06 (0.8-1.2)
[2021-10-03 04:00] VITALS: BP 119/66; PULSE 89; RESP 16; TEMP 36.8; O2SAT 96
[2021-10-03] MEDS: metroNIDAZOLE IV 500 MG/100 ML PREMIX 100 MG IV (04:09)
[2021-10-03 07:45] VITALS: PULSE 55; RESP 17; O2SAT 95
[2021-10-03] MEDS: ipratropium-albuterol 3 mL Neb INHALATION (07:50)
[2021-10-03 07:52] VITALS: PULSE 58
--- NOTE | 2021-10-03 08:35 | PC.NURSE ---
Patient went AMA r/t to withdraws and staff not allowing him to go downstairs. Nicotine patch was ordered but patient said that's not going to fix what he needs.
--- NOTE | 2021-10-04 15:32 | P.DS_ITS ---
Discharge Providers Date of Admission: 10/02/21 06:24 Date of Discharge: October 04, 2021 Attending Provider at Admission: Mello Gold Attending Provider at Discharge: Ghassan Marquez MD Diagnoses at Discharge Discharge Diagnosis (1) Vomiting: Status: Acute (2) UTI (urinary tract infection): Status: Acute (3) COPD exacerbation: Status: Acute (4) Alcohol abuse: Status: Acute (5) Transaminitis: Status: Acute (6) Hypoxia: Status: Acute (7) Closed fracture of metacarpal of left hand: Status: Acute Qualifiers: Encounter type: initial encounter Fracture alignment: nondisplaced Metacarpal bone: fifth Metacarpal location: shaft Qualified Code(s): S62.357A - Nondisplaced fracture of shaft of fifth metacarpal bone, left hand, initial encounter for closed fracture Reason for Visit Reason for Visit: N/V Hospital Course Hospital Course Patient was admitted to the hospital and I was called that he had shown some signs of withdrawal. I planned to go see him however with in 15 minutes of the first call he had left AMA. Discharge Data Studies Completed and Pending Completed Studies During Hospitalization Category Date Time Status CT abdomen renal stone [CT kidney stone [id number]] Routine Cat Scan 10/02/21 09:30 Completed XR KUB portable [id number] Routine Exams 10/02/21 09:25 Completed XR chest 1V portable [id number] Stat Exams 10/02/21 02:38 Completed Pending at discharge Category Date Time Status Urine Culture Stat Lab 10/01/21 22:00 Results Radiology Impressions Chest X-Ray 10/02/21 02:38 IMPRESSION: No acute findings. KUB X-Ray 10/02/21 09:25 IMPRESSION: 1. There are a couple mildly dilated loops of small bowel in the left upper quadrant. This does not have the typical appearance of obstruction on CT. Obstruction is considered unlikely. 2. Please see dedicated CT for additional findings. Abdomen/Pelvis CT 10/02/21 09:30 IMPRESSION: 1. Diffuse wall thickening of the colon suspicious for colitis. Correlate clinically. 2. The common bile duct is dilated measuring up to 1.1 cm. No definite obstructive stone or lesion is seen. Recommend right upper quadrant ultrasound to further assess. 3. Hepatomegaly with diffuse hepatic steatosis and mild periportal lymphadenopathy. 4. Colonic diverticulosis without evidence of acute diverticulitis. 5. Small hiatal hernia. ADDENDUM: 10/02/21 1011 There are a couple mildly dilated loops of small bowel in the left upper quadrant. This does not have the typical appearance of obstruction, and obstruction is considered unlikely. Laboratory Results WBC 4.9 10^3/uL (4.0-10.0) 10/03/21 02:55 RBC 4.38 10^6/uL (4.1-5.3) 10/03/21 02:55 Hgb 14.3 g/dL (11.7-16.6) 10/03/21 02:55 Hct 39.7 % (42.0-52.0) L 10/03/21 02:55 MCV 90.6 fl (80-94) 10/03/21 02:55 MCH 32.6 pg (28.0-34.0) 10/03/21 02:55 MCHC 36.0 g/dL (30.0-36.0) 10/03/21 02:55 RDW 11.9 % (12.1-15.1) L 10/03/21 02:55 Plt Count 131 10^3/cmm (130-400) 10/03/21 02:55 MPV 10.0 fL (7.4-10.4) 10/03/21 02:55 Neut % (Auto) 87.7 % 10/03/21 02:55 Lymph % (Auto) 6.4 % 10/03/21 02:55 [place] % (Auto) 5.7 % 10/03/21 02:55 Eos % (Auto) 0.0 % 10/03/21 02:55 Baso % (Auto) 0.0 % 10/03/21 02:55 Neut # (Auto) 4.27 10^3/uL (1.8-7.7) 10/03/21 02:55 Lymph # (Auto) 0.3 10^3/uL (0.8-4.8) L 10/03/21 02:55 [place] # (Auto) 0.3 10^3/uL (0.2-0.9) 10/03/21 02:55 Eos # (Auto) 0.0 10^3/uL (0.0-0.8) 10/03/21 02:55 Baso # (Auto) 0.0 10^3/uL (0.0-0.1) 10/03/21 02:55 Nucleated RBC % (auto) 0 % 10/03/21 02:55 Nucleated RBCs # 0.0 /100WBC 10/03/21 02:55 PT 14.10 SECONDS (12.1-14.9) 10/03/21 02:55 INR 1.06 (0.8-1.2) 10/03/21 02:55 Specimen Type Arterial 10/02/21 06:26 Sample Site Radial, left 10/02/21 06:26 ABG pH 7.40 (7.35-7.45) 10/02/21 06:26 ABG pCO2 43.1 mmHg (35-45) 10/02/21 06:26 ABG pO2 65.5 mmHg (80.0-100.0) L 10/02/21 06:26 ABG HCO3 26.9 mmol/L (22-26) H 10/02/21 06:26 ABG Base Excess 1.7 mmol/L (-2.0-2.0) 10/02/21 06:26 Antonio Test Pos 10/02/21 06:26 Hematocrit 43.0 % (42-52) 10/02/21 06:26 O2 Delivery Device Nc 10/02/21 06:26 O2 Liters/Min 2.0 % 10/02/21 06:26 Financial Reserve Clerk ID Buttr 10/02/21 06:26 Sodium 132 mmol/L (136-145) L 10/03/21 02:55 Potassium 4.2 mmol/L (3.5-5.1) 10/03/21 02:55 Chloride 97 mmol/L (98-107) L 10/03/21 02:55 Carbon Dioxide 26 mmol/L (22-29) 10/03/21 02:55 Anion Gap 13.2 (5-19) 10/03/21 02:55 BUN 14 mg/dL (6-20) 10/03/21 02:55 Creatinine 0.6 mg/dL (0.7-1.2) L 10/03/21 02:55 GFR Calculation 144.4 mL/min (90-130) H 10/03/21 02:55 Glucose 174 mg/dL (65-115) H 10/03/21 02:55 Calculated Osmolality 279 mOsm/kg (285-295) L 10/03/21 02:55 Lactate 1.5 mmol/L (0.5-2.2) 10/02/21 17:12 Calcium 9.5 mg/dL (8.5-10.5) 10/03/21 02:55 Total Bilirubin 1.1 mg/dL (0.15-1.2) 10/03/21 02:55 AST 47 U/L (0-40) H 10/03/21 02:55 ALT 44 U/L (0-41) H 10/03/21 02:55 Alkaline Phosphatase 131 IU/L (40-130) H 10/03/21 02:55 Total Protein 7.0 g/dL (6.6-8.7) 10/03/21 02:55 Albumin 4.0 g/dL (3.5-5.2) 10/03/21 02:55 Globulin 3.0 g/dL (1.3-4.6) 10/03/21 02:55 Lipase 25 U/L (13-60) 10/01/21 22:43 PSA Screen 0.78 ng/mL (0-4) 10/02/21 17:12 Vitamin B12 392 pg/mL (232-1245) 10/02/21 17:12 Folate 10.5 ng/mL (4.5-32.2) 10/02/21 17:12 TSH 0.45 uIU/mL (0.27-4.20) 10/02/21 17:12 Free T4 0.96 ng/dL (0.82-1.77) 10/02/21 17:12 Urine Color Dark yellow (Yellow) 10/01/21 22:00 Urine Appearance Turbid (CLEAR) 10/01/21 22:00 Urine pH 5 (5-7) 10/01/21 22:00 Ur Specific [place] 1.025 (1.005-1.030) 10/01/21 22:00 Urine Protein Trace (Negative) 10/01/21 22:00 Urine Glucose (UA) Norm (Normal) 10/01/21 22:00 Urine Ketones 2+ (Negative) H 10/01/21 22:00 Urine Blood 2+ (Negative) H 10/01/21 22:00 Urine Nitrate Negative (Negative) 10/01/21 22:00 Urine Bilirubin 1+ (Negative) H 10/01/21 22:00 Urine Urobilinogen 4 mg/dL (Negative) H 10/01/21 22:00 Ur Leukocyte Esterase Trace (Negative) H 10/01/21 22:00 Urine RBC 10-15 /hpf (0-2) H 10/01/21 22:00 Urine WBC 15-25 /hpf (0-5) H 10/01/21 22:00 Ur Squamous Epith Cells 5-10 /hpf (0-5) H 10/01/21 22:00 Amorphous Sediment Not Reportable 10/01/21 22:00 Urine Bacteria 1+ /hpf (NONE) H 10/01/21 22:00 Hyaline Casts 0-4 /lpf H 10/01/21 22:00 Urine Mucus 4+ /hpf 10/01/21 22:00 Urine Opiates Screen Negative ng/mL (Negative) 10/02/21 08:00 Ur Barbiturates Screen Negative ng/mL (Negative) 10/02/21 08:00 Ur Phencyclidine Scrn Negative ng/mL (Negative) 10/02/21 08:00 Ur Amphetamines Screen Negative ng/mL (Negative) 10/02/21 08:00 U Benzodiazepines Scrn Negative ng/mL (Negative) 10/02/21 08:00 Urine Cocaine Screen Negative ng/mL (Negative) 10/02/21 08:00 U Marijuana (THC) Screen Negative ng/mL (Negative) 10/02/21 08:00 Ethyl Alcohol 214 mg/dL (0-10) H 10/01/21 22:43 Coronavirus 229E (PCR) Not detected (NOT DETECT) 10/02/21 06:45 SARS-CoV-2 (PCR) Not detected (NOT DETECT) 10/02/21 06:45 Vitals Last Vital Signs Temp 98.2 F 10/03/21 04:00 Pulse 58 L 10/03/21 07:52 Resp 17 10/03/21 07:45 BP 119/66 10/03/21 04:00 Pulse Ox 95 10/03/21 07:45 Discharge Plan Discharge Patient Disposition: Home Condition: Stable Prescriptions: No Action tramadol 50 mg tablet 50 mg PO Q6H PRN (Reason: pain) Qty: 10 0RF Discharge Orders: Discharge Order (Routine); Ordered 10/04/21 Ordered By: Ghassan Marquez Patient Instructions: Gastritis (ED), Alcohol Intoxication (ED), Opioid Safety, Vomiting - Adult Activity Restrictions/Additional Instructions: Return for shortness of breath, worsening vomiting despite treatment, abdominal or chest pain, any other concerning symptoms. Take the nausea medication every 4 hours while awake for the first 48 hours, then as needed. Discharge Attestations Time Spent in Discharge Care*: less than 30 min Quality Metrics Clinical Quality Measures [ No reported AMI, CVA or VTE this stay] Coding Level of Care Code Acute Chg [facility] note Diagnoses Vomiting R11.10 UTI (urinary tract infection) N39.0 COPD exacerbation J44.1 Alcohol abuse F10.10 Transaminitis R74.01 Hypoxia R09.02 Closed fracture of metacarpal of left hand S62.357A Encounter type: initial encounter Fracture alignment: nondisplaced Metacarpal bone: fifth Metacarpal location: shaft
== END 2021-10-03 08:30 | disposition home or self-care (01) ==
LOC: ER 10-02 07:17 → MEDSURG 10-02 08:12
PROVIDERS: Internal Medicine; Physician Assistant; Admitting Provider Internal Medicine; Emergency Provider Emergency Medicine; Visit Provider Internal Medicine
DX: R11.10 Vomiting, unspecified (principal); N39.0 Urinary tract infection, site not specified; J44.1 Chronic obstructive pulmonary disease with (acute) exacerbation; F10.10 Alcohol abuse, uncomplicated; R74.01 Elevation of levels of liver transaminase levels; R09.02 Hypoxemia; S62.357A Nondisplaced fracture of shaft of fifth metacarpal bone, left hand, initial encounter for closed fracture; D75.89 Other specified diseases of blood and blood-forming organs; F17.210 Nicotine dependence, cigarettes, uncomplicated; X58.XXXA Exposure to other specified factors, initial encounter
CPT/HCPCS: 36415; 36600; 71045; 74018; 74176; 80053; 80306; 80307; 81001; 82607; 82746; 82803; 83605; 83690; 84439; 84443; 85025; 85610; 87086; 87635; 94640; 96365; 96367; 96375; 96376; 99285; C9113; G0103; G0378; J1956; J2060; J2310; J2765; J2930; J3411; J7030; S0030